=== PATIENT | female | born 1950 | race Caucasian/White ===

== ENCOUNTER 2021-02-09 13:46 | Outpatient (CLI) | payer MEDICARE, MEDICAID ==
[~2021-02-09 13:46] MED LIST: ASPI-1 PO; ATOR20TA66 PO; BACL10TA2 PO; LEVO100T9 PO; LOSA50TA64 PO; METF-900 PO; NYSPWD TOP; QUET25TA34 PO
== END 2021-02-09 23:59 | disposition home or self-care (01) ==
LOC: VAS 13:46
PROVIDERS: ATTEND Family Medicine
DX: M79.605 Pain in left leg (principal)
CPT/HCPCS: 93971